=== PATIENT | male | born 1965 | race Two or more races ===

== ENCOUNTER → 2017-11-05 | Emergency (ER) | payer OTHER ==
[~2017-11-05] VITALS: Ht 190.5 cm; Wt 95.3 kg
[~2017-11-05] MED LIST: ATACAND HCT 321 EACH; LEVAQUIN750 MG PO; MEDROL PACK PO; PROVENTIL3 ML/2.5 M IH; TESSALON PERLE100 M1 PO; TUSSI PRES-B L120 M1 PO; VISTARIL25 MG PO; VYTORIN 10-40 M1 TAB; ZITHROMAX Z PACK PO
== END | disposition home or self-care (01) ==
LOC: ER 10:10
DX: R07.9 Chest pain, unspecified (principal); F06.4 Anxiety disorder due to known physiological condition